=== PATIENT | female | born 1975 | race Caucasian/White ===

== ENCOUNTER → 2017-03-28 12:17 | Outpatient (CLI) | payer MEDICAID, SELFPAY | PROVIDERS: PCP Family Medicine; Visit Provider Family Medicine | DX: G47.10 Hypersomnia, unspecified (principal); R51 Headache; R06.83 Snoring; I10 Essential (primary) hypertension; E66.9 Obesity, unspecified | CPT/HCPCS: 95806 ==

== ENCOUNTER → 2019-08-22 10:45 | Outpatient (CLI) | payer OTHER, SELFPAY ==
--- NOTE | 2019-08-22 10:55 | XR_ITS ---
PROCEDURE: XR CERVICAL SPINE 4V CLINICAL INDICATION: PAIN IN SHOULDER AND ARM NUMBNESS COMPARISON: No exams were available for comparison FINDINGS: There is mild degenerative disc disease at C4-C5 and C5-C6. There is mild foraminal narrowing on the right at C5-C6 from uncovertebral hypertrophy. No fracture or dislocation. No lytic or blastic change. IMPRESSION: Mild cervical spondylosis as detailed above Dictated by: Orlando Robles MD 08/22/2019 14:15 Electronically signed by Orlando Robles MD in [place] 08/22/2019 14:15
== END ==
LOC: RAD 10:49
PROVIDERS: PCP Family Medicine; Visit Provider Family Medicine
DX: M54.2 Cervicalgia (principal)
CPT/HCPCS: 72050

== ENCOUNTER → 2019-11-01 07:55 | Outpatient (CLI) | payer OTHER, SELFPAY ==
--- NOTE | 2019-11-01 07:58 | US_ITS ---
PROCEDURE: US ABDOMEN LIMITED CLINICAL INDICATION: NAUSEA AND VOMITING COMPARISON: No exams were available for comparison FINDINGS: PANCREAS: Unremarkable. No obvious mass or abnormal fluid collection. No ductal dilatation LIVER: No focal liver lesions demonstrated. Homogeneous echogenicity. No intrahepatic biliary ductal dilatation evident. There is appropriate direction of blood flow within a non dilated portal vein RIGHT KIDNEY: Unremarkable. Normal size and echogenicity. No hydronephrosis GALLBLADDER: No gallstones, gallbladder wall thickening, pericholecystic fluid, or biliary dilatation. IMPRESSION: Unremarkable limited abdominal ultrasound as detailed above disc Dictated by: Orlando Robles MD 11/01/2019 11:42 Orlando Robles MD in [place] 11/01/2019 11:42
== END ==
PROVIDERS: PCP Family Medicine; Visit Provider Nurse Practitioner
DX: R11.2 Nausea with vomiting, unspecified (principal)
CPT/HCPCS: 76705

== ENCOUNTER 2019-11-14 08:55 | Outpatient (RCR) | payer OTHER, MEDICAID, SELFPAY ==
--- NOTE | 2019-11-14 09:59 | HMH.PTOPEV ---
PT Outpatient Evaluation Rehab PT Outpatient Evaluation Start: 11/14/19 09:44 Freq: Status: Active Protocol: Document 11/14/19 09:44 CHIDI (Rec: 11/14/19 09:58 CHIDI [id number]) Electronically Signed By Csaper Graham, PT 11/14/19 09:44 Outpatient Therapy Subjective History Subjective History Patient is a 44 year old female presenting to outpatient PT with reports of acute cervical spine pain with LUE radicular symptoms starting approx 1 month ago. Patient reports majority of radicular symptoms to R C6/7 dermatomes. Most recent imaging indicates mild cervical spondylosis. Symptoms of insidious onset. No other comorbidities to report. Chief Complaint Pain,Stiff,Paresthesia Symptom Type Sharp,Numbness,Tingling, Shooting Symptoms Relieved By Rest/Positioning,OTC Meds Symptoms Aggravated By Physical Activity Prior Functional Limitations None Current Functional Limitations Reaching,Lifting,Housework Symptom Description Constant but Variable Level of pain today (0-10) 5 Pain scale - at its best (0-10) 3 Pain scale - at its worst (0-10) 10 Cervical Eval Palpation Cervical Muscles L Cervical Paraspinal,L CT Junction,L Upper Trapezius Cervical/Thoracic Palpation Findings Tenderness Posture Head/C-Spine Posture Sitting Position C-Spine Flattened Head/C-Spine Posture Standing Position C-Spine Flattened Flexibility Deficits Upper Trapezius Muscle Length (L) Moderate Tightness Levaetor Scapulae Muscle Length (L) Moderate Tightness Scalene Group Muscle Length (L) Moderate Tightness Pectoralis Minor Muscle Length (L) Moderate Tightness Passive Joint Mobility Cervical PIVM Dec: R C2/3 L C2/3 R C3/4 L C3/4 R C4/5 L C4/5 R C5/6 L C5/6 R C6/7 L C6/7 R C7/T1 L C7/T1 WNL: R OA L OA R AA L AA AROM Cervical
== END 2019-11-14 09:24 | disposition home or self-care (01) ==
LOC: PT 08:55
PROVIDERS: PCP Family Medicine; Visit Provider Family Medicine
DX: M54.12 Radiculopathy, cervical region (principal)
CPT/HCPCS: 97163

== ENCOUNTER 2020-04-06 09:02 | Emergency (ER) | payer OTHER, SELFPAY ==
[2020-04-06 09:10] VITALS: BP 140/86; PULSE 83; RESP 19; TEMP 36.8; O2SAT 98; BMI 32.8
--- NOTE | 2020-04-06 09:19 | XR_ITS ---
PROCEDURE: XR CHEST 2V CLINICAL HISTORY: cough COMPARISON: CR CXR CHEST(2 VIEWS-NOT PORTABLE) from 12/11/2016 CR CXR CHEST(2 VIEWS-NOT PORTABLE) from 12/16/2016 FINDINGS: The cardiomediastinal silhouette and pulmonary vascularity are within normal limits. The lungs are clear without infiltrates, suspicious nodules, or pleural effusions. There is a calcified right paratracheal node and there partially calcified right hilar nodes and there is a tiny calcified granuloma right midlung field. No acute bony abnormalities. IMPRESSION: No acute findings. Dictated by: Dr. Bertin Piña MD 04/06/2020 10:04 Dr. Bertin Piña MD in [place] 04/06/2020 10:04
--- NOTE | 2020-04-06 09:44 | HMH.EDUTC ---
[facility] [facility] [place] Clinical Impression: Bronchitis Sinusitis Qualifiers: Sinusitis location: unspecified location Chronicity: unspecified Qualified Code(s): J32.9 - Chronic sinusitis, unspecified Disposition: Home, Self-Care Condition on Discharge: Good Instructions: Sinusitis, Acute Bronchitis, DI for Sinusitis, DI for Pleurisy, Albuterol, Methylprednisolone, Azithromycin Additional Instructions: ? Start antibiotic today. Be sure to complete entire prescription even if feeling better ? Monitor temp. Tylenol every 4 hours as needed and / or ibuprofen every 6 hours as needed ( As long as your primary care physician has told you that it ok to take both. For fever/aches/pains ER if no less than 101 despite Tylenol or Motrin ? Humidifier/vaporizer or hot steamy shower ? Inhaler every 4-6 hours as needed like we discussed. If unsure how to use it, ask pharmacist to demonstrate how. Should help open airways and improve cough, wheezing, and shortness of breath ? Mucinex during the day for your cough and cough suppressant only at night. Be sure to drink lots of water. Insurance may not cover a prescriptions for mucinex. Might be cheaper to get 400mg tablets and take 2 tablet in the morning, mid-day and evening with lots of water. *Start steroid today. Helps with inflammation therefore, cough and wheezing. Follow directions on the package. Reviewed side effects. Patient reports taking them before. Follow up IMMEDIATELY for new or worsening of symptoms OR no noticeable improvement over the next 48-72 hours. 911 immediately for any life threatening symptoms such as chest pain or difficulty breathing Prescriptions: Albuterol Sulfate [Proventil-HFA 90mcg/puff Inh] 1 - 2 puffs IH Q4HP PRN #1 inh PRN Reason: Shortness Of Breath Transmission Status: Received by [facility] methylPREDNISolone [Medrol 4mg tab] 4 mg PO DIRECTED #21 tab Transmission Status: Received by [facility] guaiFENesin [Mucinex 600mg tablet] 600 mg PO BID PRN #10 tab.er.12h PRN Reason: Congestion Transmission Status: Received by [facility] Azithromycin [Z-Prabhu 250mg Tab] 250 mg PO DIRECTED #6 tab Transmission Status: Received by [facility] Referrals: Amado Lyle MD [Primary Care Provider] - As needed Time of Disposition: 10:01 Medical Decision Making - Nathanael Inquiry Pt receiving controlled substance: No Nathanael was queried for this patient: No Vital Signs: 04/06/20 09:10 04/06/20 10:07 Temperature 98.2 F 98.2 F Temperature Source Oral Pulse Rate 83 Pulse Rate [Right Brachial] 83 Respiratory Rate 19 19 Blood Pressure 140/86 Blood Pressure [Right Arm] 140/86 Blood Pressure Mean [Right Arm] 104 Blood Pressure Source [Right Arm] Automatic Cuff Blood Pressure Position [Right Arm] Sitting 02 Sat by Pulse Oximetry 98 Oxygen Delivery Method Room Air - Radiology Data #1 Image(s): Chest Image Reviewed: Yes I reviewed the patient's radiology image w/the ED provider Preliminary Findings: Normal/NAD No acute finding Medical Decision Narrative: Discussed with patient that chest xray was clear and all the risks associated with COVID 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 Discussed that we could send her to the ED for more extensive work up and testing and patient declined at this time Patient advised that if she had sudden shortness of breath, stabbing chest pain etc she needed to go straight to the nearest emergency room and she verbalized understanding Patient reports that she has taken azithromycin and Medrol dose pack before without complications or reactions [facility] [place] [facility] [place] - General Stated complaint: tightness in chest, cough, pain in shoulder blades Time Seen by Provider: 04/06/20 09:44 Mode of Arrival: Ambulatory Source of Information: Patient Limitations: No Limitations Description of Symptoms (Recalled from Triage Doc. by RN): PATEINT C/O CHEST TIGHTNESS, PAIN IN MID/UPPER BACK, AND OCCASIO
[2020-04-06 10:07] VITALS: BP 140/86; PULSE 83; RESP 19; TEMP 36.8; O2SAT 98
== END 2020-04-06 10:09 | disposition home or self-care (01) ==
PROVIDERS: Emergency Provider Nurse Practitioner; PCP Family Medicine
DX: J20.9 Acute bronchitis, unspecified (principal); J32.9 Chronic sinusitis, unspecified; F17.210 Nicotine dependence, cigarettes, uncomplicated; Z88.0 Allergy status to penicillin
CPT/HCPCS: 71046; 99202; G0463

== ENCOUNTER 2021-03-25 09:45 | Emergency (ER) | payer OTHER, SELFPAY ==
[2021-03-25 10:05] VITALS: BP 131/76; PULSE 85; RESP 18; TEMP 36.8; O2SAT 97; BMI 33.5
--- NOTE | 2021-03-25 10:41 | HMH.EDUTC ---
[facility] [place] Clinical Impression: Viral syndrome Disposition: Home, Self-Care Condition on Discharge: Good Instructions: DI for Viral Syndrome Additional Instructions: *Monitor Temp, Over the counter Motrin or Tylenol as directed/as needed Tylenol every 4 hours and Motrin every 6 hours (as long as your family doctor has told you that you can take it) for fever or pain. and straight to ER if unable to lower temp less than 101.0 after medication given *Warm salt water gargles may help to soothe the throat *Throat Lozenges *Warm fluids like tea with honey may help to soothe the throat *Sleep elevated *Humidifier/Vaporizer Follow up IMMEDIATELY for new or worsening symptoms or no Noticeable improvement over the next 48-72 hours. 911 for difficulty breathing or swallowing You were tested for today for COVID19 your test result should be back in the next 24-48 hours, you may check your results on the [facility] Portal if you have trouble logging on or checking your results you may call support If you are positive someone from the hospital will be calling you Make sure to take your Vitamins Vit. C Vit D and Zinc if you can take them Referrals: Amado Lyle MD [Primary Care Provider] - As needed Forms: Work/School Release Time of Disposition: 11:10 Medical Decision Making - Nathanael Inquiry Pt receiving controlled substance: No Nathanael was queried for this patient: No Vital Signs: 03/25/21 10:05 03/25/21 10:55 Temperature 98.2 F 98.2 F Temperature Source Oral Pulse Rate 85 Pulse Rate [Left] 85 Respiratory Rate 18 18 Blood Pressure 131/76 Blood Pressure [Right Arm] 131/76 Blood Pressure Mean [Right Arm] 94 02 Sat by Pulse Oximetry 97 Orders (Tests/Meds): ORDERS Category Date Time Status Covid-19 Nasal PCR ([facility]) Routine Lab 03/25/21 10:06 Received [facility] [place] HPI - General Stated complaint: cough, congestion, CAMPOS, light headed Time Seen by Provider: 03/25/21 10:41 Mode of Arrival: Ambulatory Source of Information: Patient Limitations: No Limitations Description of Symptoms (Recalled from Triage Doc. by RN): pt c/o cough, congestion, CAMPOS, dizziness, and sneezing x3 days. HEENT Symptoms (Recalled from RN notes): Yes Resp Symptoms (Recalled from RN notes): Yes Skin Symptoms (Recalled from RN notes): No MS Symptoms (Recalled from RN notes): No Functional Status (Recalled from RN notes): wnl - History of Present Illness Provider Complaint: Patient states that she was recently exposed to COVID States that for the last three days she has been having sore throat, cough, nasal congestion, sneezing and headache States that the last time she had COVID she had a headache similar to what she has now - Related Data Home Medications Medication Instructions Recorded Confirmed Escitalopram Oxalate [Lexapro] 20 mg PO DAILY 04/06/20 04/06/20 Previous Rx's Medication Instructions Recorded Albuterol Sulfate [Proventil-HFA 1 - 2 puffs IH Q4HP PRN #1 inh 04/06/20 90mcg/puff Inh] Azithromycin [Z-Prabhu 250mg Tab] 250 mg PO DIRECTED #6 tab 04/06/20 guaiFENesin [Mucinex 600mg tablet] 600 mg PO BID PRN #10 tab.er.12h 04/06/20 methylPREDNISolone [Medrol 4mg 4 mg PO DIRECTED #21 tab 04/06/20 tab] Allergies Allergy/AdvReac Type Severity Reaction Status Date / Time Penicillins [PENICILLINS] Allergy Mild Verified 11/15/18 18:58 - Worker's Comp Is this a Worker's Comp case?: No [facility] History - Hepatitis A Screen Drug use history?: No High risk sexual behaviors?: No History of sexually transmitted infection?: No Currently employed?: No Childcare worker?: No Do you have indoor plumbing?: Yes Do you have electricity?: Yes Attestation statement:: This patient has been screened for Hepatitis A risk factors. I have reviewed the patient's past medical history: Yes - Social History Smoking Status: Current every day smoker Tobacco Type: cigarettes # Packs/Day (cigarettes)
[2021-03-25 10:55] VITALS: BP 131/76; PULSE 85; RESP 18; TEMP 36.8
== END 2021-03-25 11:21 | disposition home or self-care (01) ==
PROVIDERS: Emergency Provider Nurse Practitioner; PCP Family Medicine
DX: U07.1 COVID-19 (principal); B34.9 Viral infection, unspecified; F17.210 Nicotine dependence, cigarettes, uncomplicated
CPT/HCPCS: 99203; C9803; G0463; U0003; U0005

== ENCOUNTER → 2021-08-24 09:46 | Outpatient (CLI) | payer OTHER, SELFPAY ==
[2021-08-24 09:58] LABS: Basophils # 0.1 K/mm3 (0-0.2); Eosinophils # 0.3 K/mm3 (0.0-0.4); Eosinophils % 3.4 % (0.1-12.0); Hematocrit 24.6 % (37.0-47.0); Hemoglobin 7.8 g/dL (12.2-16.2); Lymphocytes # 2.7 K/mm3 (0.7-4.5); Lymphocytes % 29.5 % (10-50); Mean Corpuscular HGB Conc 31.6 g/dL (31.8-35.4); Mean Corpuscular Hemoglobin 31.5 pg (27.0-31.2); Mean Corpuscular Volume 99.7 fl (81-99); Monocytes # 0.5 K/mm3 (0.1-1.0); Neutrophils # 5.6 K/mm3 (1.8-7.8); Neutrophils % 61.1 % (37.0-80.0); Platelet Count 443 K/mm3 (142-424); Red Blood Count 2.47 M/mm3 (4.20-5.40); Red Cell Distribution Width 13.5 % (11.5-17.5); White Blood Count 9.2 K/mm3 (4.8-10.8)
[2021-08-24 11:10] LABS: Thyroid Stimulating Hormone 5.46 uIU/mL (0.465-4.68)
[2021-08-24 16:22] LABS: Free T4 (Free Thyroxine) 0.73 ng/dl (0.78-2.19)
== END ==
PROVIDERS: Visit Provider Obstetrics & Gynecology
DX: N92.6 Irregular menstruation, unspecified (principal); R79.89 Other specified abnormal findings of blood chemistry
CPT/HCPCS: 36415; 84439; 84443; 85025

== ENCOUNTER → 2021-08-26 14:56 | Outpatient (CLI) | payer OTHER, SELFPAY ==
--- NOTE | 2021-08-26 14:57 | US_ITS ---
FINAL REPORT CLINICAL HISTORY: Abnormal uterine bleeding; prolonged bleeding X 2 months; endometrium thickened; cyst on both ovaries FINDINGS: Transvaginal sonographic images of the pelvis were obtained. The uterus measures 8.7 x 4.7 x 4.3 cm. The endometrium measures up to 2 cm, which is thickened but may be physiologic. No uterine mass is identified. The right ovary measures 3.7 cm cm in length and left ovary measures 5 cm in length. Normal blood flow seen to the ovaries. There are anechoic structures in both ovaries measuring up to 3.5 x 2.8 on the right and up to 2.8 cm in diameter on the left. These may represent cysts or follicles. There is no evidence of free fluid. IMPRESSION: Thickened endometrium. Cysts or follicles on both ovaries. A repeat exam in 6 weeks or 10 weeks could better assess both the endometrium and ovaries. Reviewed, Interpreted and Dictated by Reilly Velasquez MD Transcribed by Yris Del Cid Authenticated and . [facility]
== END ==
LOC: RAD 14:57
PROVIDERS: PCP Family Medicine; Visit Provider Obstetrics & Gynecology
DX: N92.6 Irregular menstruation, unspecified (principal); N93.9 Abnormal uterine and vaginal bleeding, unspecified
CPT/HCPCS: 76830

== ENCOUNTER 2021-08-27 00:07 | Observation (INO) | payer OTHER, SELFPAY ==
[2021-08-27] VITALS (40 sets, daily range): BP systolic 103–157; BP diastolic 57–99; PULSE 68–107; RESP 14–20; TEMP 36.3–37; O2SAT 94–100; BMI 33.6; BMI 34.6
--- NOTE | 2021-08-27 00:14 | ECG_ITS ---
APPROVED REPORT Exam: Resting ECG HR:107 bpm ECG Measurements Heart Rate 107 AXES OR 141 P 67 QRSd 85 QRS 71 QT 316 T 73 QTc 379 Conclusion SINUS TACHYCARDIA ABNORMAL RHYTHM ECG UNCONFIRMED REPORT Electronically signed by : Amado Gonsales MD 08/27/2021 09:19:18
--- NOTE | 2021-08-27 00:17 | XR_ITS ---
PROCEDURE INFORMATION: Exam: XR Chest Exam date and time: 08/27/2021 12:36 AM Age: 45 years old Clinical indication: Pain; Shortness of breath; Chest pressure; Additional info: SOA TECHNIQUE: Imaging protocol: Radiologic exam of the chest. Views: 2 views. COMPARISON: CR XR CHEST 2V 04/06/2020 9:22 AM FINDINGS: Lungs: Stigmata of old granulomatous disease. Pleural spaces: Unremarkable. No pleural effusion. No pneumothorax. Heart/Mediastinum: Unremarkable. No cardiomegaly. Bones/joints: Unremarkable. IMPRESSION: No acute findings.
[2021-08-27 00:23] LABS: Microscopic, Urine URINE MICROSCOPIC (MICROSCOPIC)
[2021-08-27 00:31] LABS: Coronavirus 19, PCR Not Detected (NotDetected); Influenza A, PCR Not Detected (NotDetected); Influenza B, PCR Not Detected (NotDetected)
[2021-08-27 00:34] LABS: Basophils # 0.1 K/mm3 (0-0.2); Basophils % 0.6 % (0.1-2.0); Eosinophils # 0.3 K/mm3 (0.0-0.4); Eosinophils % 1.7 % (0.1-12.0); Hematocrit 22.4 % (37.0-47.0); Lymphocytes # 3.1 K/mm3 (0.7-4.5); Lymphocytes % 18.9 % (10-50); Mean Corpuscular Hemoglobin 31.8 pg (27.0-31.2); Mean Corpuscular Volume 102.5 fl (81-99); Monocytes # 0.7 K/mm3 (0.1-1.0); Monocytes % 4.4 % (1.7-9.3); Neutrophils % 74.4 % (37.0-80.0); Platelet Count 594 K/mm3 (142-424); Red Blood Count 2.19 M/mm3 (4.20-5.40); Red Cell Distribution Width 13.5 % (11.5-17.5); White Blood Count 16.1 K/mm3 (4.8-10.8)
[2021-08-27 00:37] LABS: Alanine Aminotransferase 26 U/L (12-78); Albumin Level 3.6 g/dl (3.5-5.0); Albumin/Globulin Ratio 1.4 (1.1-1.8); Alkaline Phosphatase 68 U/L (38-126); Anion Gap 10.7 mEq/L (5-15); Aspartate Amino Transferase 32 U/L (14-36); Blood Urea Nitrogen 7 mg/dl (7-17); Calcium 8.6 mg/dl (8.4-10.2); Carbon Dioxide 23 mmol/L (22.0-30.0); Chloride 107 mmol/L (98-107); Creatinine Clearance Estimated 137 mL/min (50-200); Estimated Glomerular Filt Rate 78 ml/min (>60); GFR (African American) 94 ML/MIN (>60); Globulin 2.6 g/dL (1.3-3.2); Glucose 113 mg/dl (74-100); Potassium 3.7 mmoL/L (3.5-5.1); Sodium 137 mmol/L (136-145); Total Protein,Serum 6.2 g/dl (6.3-8.2)
[2021-08-27 00:42] LABS: Bilirubin,Total < 0.1 mg/dl (0.2-1.3); C-Reactive Protein 0.7 mg/L (0-4)
--- NOTE | 2021-08-27 00:43 | PC.NURSE ---
Pt gone to RAD for XRAY
[2021-08-27 00:45] LABS: MANUAL DIFFERENTIAL MANUAL DIFFERENTIAL (MANUAL DIFF)
--- NOTE | 2021-08-27 00:46 | PC.NURSE ---
Pt back from RAD
[2021-08-27 00:52] LABS: Appearance,Urine SL CLOUDY (Clear); Bilirubin,Urine Negative (Negative); Blood, Urine 3+ (Negative); Color,Urine YELLOW (Yellow); Glucose,Urine (UA) Negative (Negative); Ketones,Urine Negative (Negative); Leukocyte Esterase,Urine 1+ (Negative); Nitrate,Urine Negative (Negative); Protein,Urine Negative (Negative); Urobilinogen,Urine 0.2 EU/dl (0.2)
[2021-08-27 00:56] LABS: Procalcitonin 0.032 ng/mL (0.0-2.0)
[2021-08-27 01:02] LABS: Troponin I < 0.01 ng/ml (0.00-0.034)
[2021-08-27 01:29] LABS: Erythrocyte Sedimentation Rate 111 mm/hr (0-20)
[2021-08-27 01:38] LABS: Bacteria,Urine 1+ /lpf; Squamous Epithelial Cell,Urine 20-50 #/hpf (0-5)
--- NOTE | 2021-08-27 01:39 | PC.NURSE ---
Warm blanket given for comfort. Updated pt on POC. No complaints voiced.
--- NOTE | 2021-08-27 01:50 | HMH.EDSOB ---
ED Disposition Clinical Impression: Abnormal uterine bleeding, Tobacco user, Obesity (BMI 30-39.9) Chest pain Qualifiers: Chest pain type: precordial pain Qualified Code(s): R07.2 - Precordial pain Disposition: Admitted as Observation Condition on Discharge: Fair - Critical Care Critical Care Time: No Attestation: On 08/27/21, the high probability of a clinically significant, sudden or life threatening deterioration of the following system(s) required my full and direct attention, intervention and personal management. The time I documented below is in addition to time spent performing reported procedures but includes the following listed in this critical care notation. Medical Decision Making - Medical Records Medical records reviewed: Yes: I reviewed the patient's medical records. - Nathanael Inquiry Pt receiving controlled substance: No Vital Signs: 08/27/21 00:08 08/27/21 00:30 08/27/21 01:00 Temperature 98.5 F Temperature Source Oral Pulse Rate 101 H 90 Pulse Rate [Orthostatic Lying Right] 101 H Pulse Rate [Orthostatic Sitting Right] 105 H Pulse Rate [Orthostatic Standing Right] 105 H Pulse Rate [Right] 107 H Respiratory Rate 18 Blood Pressure 127/73 113/66 Blood Pressure [Orthostatic Lying Right Arm] 115/65 Blood Pressure [Orthostatic Sitting Right Arm] 118/65 Blood Pressure [Orthostatic Standing Right Arm] 118/66 Blood Pressure [Right Arm] 145/73 H Blood Pressure Mean 83 Blood Pressure Mean [Right Arm] 97 02 Sat by Pulse Oximetry 100 100 100 Oxygen Delivery Method Room Air 08/27/21 01:30 Temperature Temperature Source Pulse Rate 91 H Pulse Rate [Orthostatic Lying Right] Pulse Rate [Orthostatic Sitting Right] Pulse Rate [Orthostatic Standing Right] Pulse Rate [Right] Respiratory Rate Blood Pressure 127/72 Blood Pressure [Orthostatic Lying Right Arm] Blood Pressure [Orthostatic Sitting Right Arm] Blood Pressure [Orthostatic Standing Right Arm] Blood Pressure [Right Arm] Blood Pressure Mean Blood Pressure Mean [Right Arm] 02 Sat by Pulse Oximetry 100 Oxygen Delivery Method Room Air - Lab Data Lab results reviewed: Yes: I reviewed the patient's lab results. Lab Results 08/27/21 00:10: Urine Color Yellow, Urine Appearance Sl cloudy, Urine pH 6.0, Ur Specific [place] 1.020, Urine Protein Negative, Urine Glucose (UA) Negative, Urine Ketones Negative, Urine Blood 3+, Urine Nitrate Negative, Urine Bilirubin Negative, Urine Urobilinogen 0.2, Ur Leukocyte Esterase 1+ A, Urine RBC 10-20, Urine WBC 10-20, Ur Squamous Epith Cells 20-50, Urine Bacteria 1+ 08/27/21 00:20: WBC 16.1 H D, RBC 2.19 L, Hgb 7.0 L, Hct 22.4 L, MCV 102.5 H, MCH 31.8 H, MCHC 31.0 L, RDW 13.5, Plt Count 594 H D, MPV 9.0, Neut % (Auto) 74.4, Lymph % (Auto) 18.9, Tyrrell % (Auto) 4.4, Eos % (Auto) 1.7, Baso % (Auto) 0.6, Neut # (Auto) 12.0 H, Lymph # (Auto) 3.1, Tyrrell # (Auto) 0.7, Eos # (Auto) 0.3, Baso # (Auto) 0.1, Total Counted 100, Neutrophils % (Manual) 88 H, Lymphocytes % (Manual) 10, Monocytes % (Manual) 2, Platelet Estimate Normal, RBC Morphology Not Reportable, Hypochromasia 1+, Anisocytosis 1+, ESR 111 H 08/27/21 00:20: Sodium 137, Potassium 3.7, Chloride 107, Carbon Dioxide 23, Anion Gap 10.7, BUN 7, Creatinine 0.80, Estimated Creat Clear 137, Estimated GFR 78, Est GFR ( Amer) 94, Glucose 113 H, Calcium 8.6, Total Bilirubin < 0.1 L, AST 32, ALT 26, Alkaline Phosphatase 68, Troponin I < 0.01, C-Reactive Protein 0.7, Total Protein 6.2 L, Albumin 3.6, Globulin 2.6, Albumin/Globulin Ratio 1.4, Procalcitonin 0.032 08/27/21 00:20: SARS-CoV-2 (PCR) Not detected, Influenza A Untype (PCR) Not detected, Influenza Type B (PCR) Not detected Result diagrams: 08/27/21 00:20 08/27/21 00:20 Orders (Tests/Meds): ED MEDICATIONS Generic Name Dose Route Start Last Admin Trade Name Freq PRN Reason Stop Dose Admin Sodium Chloride 1,000 mls @ 999 mls/hr 08/27/21 00:30 08/27/21 00:25 Sod Chlo
--- NOTE | 2021-08-27 02:02 | PC.NURSE ---
speaking to Dr. Hanna
[2021-08-27 02:03] LABS: Anisocytosis 1+; Hypochromasia 1+; Lymphocytes % 10 % (10-50); Monocytes % 2 % (2-9); Neutrophils % 88 % (42-76); Platelet Estimate Normal; Total Cells Counted 100
--- NOTE | 2021-08-27 02:15 | PC.NURSE ---
Dr. Ronak workman
--- NOTE | 2021-08-27 02:17 | PC.NURSE ---
speaking with Dr. Simons
[2021-08-27 02:36] LABS: NT Pro Brain Natriuretic Pep. 190 pg/mL (0-125)
--- NOTE | 2021-08-27 03:11 | PC.NURSE ---
patient up too floor via wheelchair @ this time.
--- NOTE | 2021-08-27 03:45 | PC.NURSE ---
Blood consent obtained and placed on patient chart. Risks/benefits explained to patient, and all questions answered/explained.
[2021-08-27 03:50] LABS: Troponin I < 0.01 ng/ml (0.00-0.034)
--- NOTE | 2021-08-27 05:14 | PC.NURSE ---
Pt currently receiving first unit of PRBC's. Tolerating well. No s/s of transfusion reaction. Pt denies any cp, or soa. LS CTA. NSR on telemetry. All pulses palpable. Denies any vaginal bleeding at this time. No acute changes or distress noted since admission, will continue to monitor for any further changes.
[2021-08-27 06:17] LABS: Chloride 113 mmol/L (98-107); Potassium 3.6 mmoL/L (3.5-5.1); Sodium 136 mmol/L (136-145)
[2021-08-27 06:19] LABS: Blood Urea Nitrogen 5 mg/dl (7-17); Creatinine Clearance Estimated 187 mL/min (50-200); Estimated Glomerular Filt Rate 108 ml/min (>60); GFR (African American) 131 ML/MIN (>60)
[2021-08-27 06:20] LABS: Anion Gap 6.6 mEq/L (5-15); Carbon Dioxide 20 mmol/L (22.0-30.0); HDL Cholesterol 24 mg/dl (40-60)
[2021-08-27 06:23] LABS: Basophils # 0.1 K/mm3 (0-0.2); Basophils % 0.8 % (0.1-2.0); Eosinophils # 0.2 K/mm3 (0.0-0.4); Eosinophils % 1.8 % (0.1-12.0); Lymphocytes # 2.6 K/mm3 (0.7-4.5); Lymphocytes % 22.6 % (10-50); Mean Corpuscular HGB Conc 29.6 g/dL (31.8-35.4); Mean Corpuscular Hemoglobin 31.6 pg (27.0-31.2); Mean Corpuscular Volume 106.7 fl (81-99); Mean Platelet Volume 8.9 fl (7.4-10.4); Monocytes # 0.5 K/mm3 (0.1-1.0); Monocytes % 4.3 % (1.7-9.3); Neutrophils % 70.6 % (37.0-80.0); Platelet Count 452 K/mm3 (142-424); Red Blood Count 1.96 M/mm3 (4.20-5.40); Red Cell Distribution Width 13.7 % (11.5-17.5); White Blood Count 11.4 K/mm3 (4.8-10.8)
[2021-08-27 06:26] LABS: Chol/HDL Ratio 7.2 (1-3.5); Cholesterol 172 mg/dl (140-200); Triglycerides 195 mg/dl (30-150); VLDL Cholesterol 39 mg/dL (0-40)
[2021-08-27 06:27] LABS: Hemoglobin 6.2 g/dL (12.2-16.2)
[2021-08-27 06:28] LABS: Hematocrit 20.9 % (37.0-47.0)
--- NOTE | 2021-08-27 06:29 | PC.NURSE ---
aware of critical hgb - 1st unit of PRBC's still transfusing at this time. Rate of 150ml/hr
[2021-08-27 06:31] LABS: Direct LDL Cholesterol 122.06 mg/dL (100-129)
[2021-08-27 06:53] LABS: Calcium 7.8 mg/dl (8.4-10.2); Glucose 94 mg/dl (74-100)
--- NOTE | 2021-08-27 06:55 | PC.NURSE ---
cv lab at bedside for echo doppler
[2021-08-27 07:08] LABS: Troponin I < 0.01 ng/ml (0.00-0.034)
--- NOTE | 2021-08-27 07:21 | P.CONPHA_ITS ---
[facility] VTE Monitoring - Patient Demographics Admission date: 08/27/21 Report Date: 08/27/21 Time: 07:21 Allergies/Adverse Reactions: Patient Allergies Penicillins [PENICILLINS] Allergy (Mild, Verified 08/27/21 03:00) Height: 1.7 m Weight: 100.062 kg Patient Problems: Current Active Problems Chest pain (Acute) Obesity (BMI 30-39.9) (Acute) Abnormal uterine bleeding (Acute) Tobacco user (Acute) - VTE Risk Labs: VTE Related Lab Results Hgb 6.2 g/dL (12.2-16.2) L* 08/27/21 05:47 Hct 20.9 % (37.0-47.0) L* 08/27/21 05:47 Plt Count 452 K/mm3 (142-424) H 08/27/21 05:47 BUN 5 mg/dl (7-17) L D 08/27/21 05:47 Creatinine 0.60 mg/dl (0.52-1.04) D 08/27/21 05:47 Estimated Creat Clear 187 mL/min (50-200) 08/27/21 05:47 VTE Score: 3 VTE Risk Level: Low Risk - Prophylaxis VTE Prophylaxis Ordered?: Yes Types of VTE Prophylaxis: TEDS Knee High Location of Applied Device: Bilateral Lower Extremeties
--- NOTE | 2021-08-27 07:22 | HMH.PHAINT ---
MEDICATION RECONCILIATION COMPLETED ON PATIENT USING EXTERNAL FILL HISTORY FROM PHARMACY AND LIST FROM CLAIMS SUPPORT SPECIALIST OFFICE. -DIANA ANDERSOND
--- NOTE | 2021-08-27 08:00 | CA_ITS ---
APPROVED REPORT EXAM: Comprehensive 2D, Doppler, and color-flow Echocardiogram Auricular Therapist: Little Angulo, GLEN, RVS Ht: 5 ft 7 in Wt: 215lbs BSA: 2.09 BP: 127/72 mmHg Indications: Anemia Hgb7.0l, dysfuntional uterine bleeding, CP,smoker,Obesity 2D Dimensions LVOT 1.98 cm (M/F) 1.5-2.5 LA Volume 50.80 mL LA Volume Index 24.30 mL/m2 (M/F) 16-34 M-Mode Dimensions RVDd 2.07 cm (0.9-2.6) LA Diam 3.77 cm (1.9-4.0) LVDd 5.54 cm (3.5-5.7) Ao Diam 2.83 cm (2.0-3.7) LVDs 3.89 cm (3.5-5.7) IVSd 0.82 cm (0.6-1.1) PWd 0.82 cm (0.6-1.1) EF (Teich) 56.30% EPSs 0.36 cm FS 29.80% EDV (Teich) 149.90 mL TAPSE 2.51 (<1.7) ESV (Teich) 65.50 mL LV Diastology E Decel Time 173.00 (160-240 msec) E/A Ratio 1.21 MED E' 12.10 (< 7 cm/sec) MED A' 9.20 cm/s E'/MED E' Ratio 9.27 (>14) LAT E' 11.80 (<10 cm/sec) LAT A' 6.80 cm/s E/LAT E' Ratio 9.51 (>14) Aortic Valve LVOT Max 109.00 (70-110 cm/s) LVOT VTI 22.53 cm AoV Peak Piter. 138.00 (50-130 cm/s) AO Peak GR. 7.60 mmHg AO Mean GR. 3.80 (<5 mmHg) AO VTI 27.16 (18-25 cm) MARTINE (VTI) 2.55 (2.5-4.5 cm2) Mitral Valve MV A Velocity 92.00 (40-130 cm/s) E/A Ratio 1.21 MV Decel. Time 173.00 (160-240 ms) MV Mean Gr. 1.70 (<2mmHg) MV PHT 47.00 ms Pulmonary Valve PV Peak Velocity 96.00 (50-150 cm/s) Tricuspid Valve TR P. Velocity 189.00 cm/s Left Ventricle Left atrium normal size, left ventricle is normal size there is no concentric left ventricular hypertrophy, estimated ejection fraction 55% with no regional motion abnormality, diastolic parameters are within normal range. Right Ventricle Right atrium and right ventricle are normal size and contractility. Aortic Valve Aortic valve is grossly normal, there is no aortic stenosis or aortic insufficiency. Mitral Valve Mitral valve is grossly normal, there is trace mitral regurgitation. Tricuspid Valve Tricuspid grossly normal, there is trace tricuspid regurgitation, tricuspid regurgitation jet velocity is inadequate for calculation of the right ventricular systolic pressure. Pulmonic Valve Pulmonic valve is poorly visualized. Great Vessels Aortic root is normal size. Inferior vena cava is normal size with normal inspiratory collapse. Pericardium No significant pericardial effusion noted. Conclusion 1. Normal left ventricular size, preserved left ventricular systolic function, estimated ejection fraction 55% with no regional wall motion abnormality, diastolic parameters are within normal range. 2. Trace mitral and tricuspid regurgitation. 3. No significant pericardial effusion noted. 4. Inferior vena cava normal size with normal inspiratory collapse. Electronically signed by : Pravin Austin MD 08/28/2021 13:44:23
--- NOTE | 2021-08-27 08:40 | PC.NURSE ---
started 2nd unit of blood on patient at 0835. patient has no questions or concerns at this time. currently resting in bed.
--- NOTE | 2021-08-27 08:48 | HMH.CNCARD ---
History of Present Illness Consult date: 08/27/21 Consult reason: chest pain Chief complaint: Anemia, chest pain Additional Medical History:: 1. Tobacco use 2. Family history of early coronary artery disease in both parents in their 50s (both smokers) 3. Abnormal, heavy uterine bleeding for 3 months A. Hospitalization with hemoglobin of 6.2 with heavy uterine bleeding, 08/26/2021 4. History of hyperlipidemia 5. Chest pain, hospitalized 08/26/2021, normal troponins with normal EF on echocardiogram History of present illness: 45-year-old white female with history of recent heavy menstrual bleeding was admitted yesterday for 1 week history of heavy bleeding with onset of chest pain yesterday along with weakness and fatigue. Patient was admitted with a hemoglobin of 6.2 for transfusion. Patient has no further chest pain overnight. Troponins returned normal x3 overnight. Preliminary echocardiogram echocardiogram shows preserved ejection fraction. Nondiabetic Nonhypertensive No prior cardiac history She does smoke EKG is sinus tachycardia at 107 bpm with no acute ST segment changes. [facility] History Medical History: Denies:: Cancer, Diabetes Mellitus Type 1, Diabetes Mellitus Type 2, MRSA *Have you ever received a pneumonia vaccine?: No *Have you received a flu vaccine this season?: Yes Other Surgeries: Yes: Tubal Ligation Amputation: No Fractures: No - *Social History Last grade of school completed: Advanced degree Smoking Status: Current every day smoker Tobacco Type: cigarettes # Packs/Day (cigarettes): 1 Alcohol Intake: never Alcohol Intake Frequency:: other *Occupational Status:: employed Housing: house Household Members: spouse *Travel in the last 8 weeks: None Family Hx:: Cancer, Heart Attack, Stroke Meds Home Medications Medication Instructions Recorded Confirmed Type Ferrous Sulfate [Ferrous Sulfate 325 mg PO DAILY 08/27/21 08/27/21 History 325mg Tab] Norethindrone Acetate 5 mg PO DIRECTED 08/27/21 08/27/21 History Allergies Allergy/AdvReac Type Severity Reaction Status Date / Time Penicillins [PENICILLINS] Allergy Mild Verified 08/27/21 03:00 Exam Vital signs and Labs for Last 24 Hours: Temp Pulse Resp BP Pulse Ox 98.3 F 76 16 106/81 L 99 08/27/21 08:45 08/27/21 08:45 08/27/21 08:45 08/27/21 08:45 08/27/21 08:45 Laboratory Results - last 24 hr 08/27/21 00:10: Urine Color Yellow, Urine Appearance Sl cloudy, Urine pH 6.0, Ur Specific [place] 1.020, Urine Protein Negative, Urine Glucose (UA) Negative, Urine Ketones Negative, Urine Blood 3+, Urine Nitrate Negative, Urine Bilirubin Negative, Urine Urobilinogen 0.2, Ur Leukocyte Esterase 1+ A, Urine RBC 10-20, Urine WBC 10-20, Ur Squamous Epith Cells 20-50, Urine Bacteria 1+ 08/27/21 00:20: WBC 16.1 H D, RBC 2.19 L, Hgb 7.0 L, Hct 22.4 L, MCV 102.5 H, MCH 31.8 H, MCHC 31.0 L, RDW 13.5, Plt Count 594 H D, MPV 9.0, Neut % (Auto) 74.4, Lymph % (Auto) 18.9, [place] % (Auto) 4.4, Eos % (Auto) 1.7, Baso % (Auto) 0.6, Neut # (Auto) 12.0 H, Lymph # (Auto) 3.1, [place] # (Auto) 0.7, Eos # (Auto) 0.3, Baso # (Auto) 0.1, Total Counted 100, Neutrophils % (Manual) 88 H, Lymphocytes % (Manual) 10, Monocytes % (Manual) 2, Platelet Estimate Normal, RBC Morphology Not Reportable, Hypochromasia 1+, Anisocytosis 1+, ESR 111 H 08/27/21 00:20: Sodium 137, Potassium 3.7, Chloride 107, Carbon Dioxide 23, Anion Gap 10.7, BUN 7, Creatinine 0.80, Estimated Creat Clear 137, Estimated GFR 78, Est GFR ( Amer) 94, Glucose 113 H, Calcium 8.6, Total Bilirubin < 0.1 L, AST 32, ALT 26, Alkaline Phosphatase 68, Troponin I < 0.01, C-Reactive Protein 0.7, Total Protein 6.2 L, Albumin 3.6, Globulin 2.6, Albumin/Globulin Ratio 1.4, Procalcitonin 0.032 08/27/21 00:20: SARS-CoV-2 (PCR) Not detected, Influenza A Untype (PCR) Not detected, Influenza Type B (PCR) Not detected 08/27/21 00:20: NT-Pro-B Natriuret Pep 190 H 08/27/21 00:20: Blood Type Confirm A Positive 08/27/21
--- NOTE | 2021-08-27 10:07 | HMH.ACPN2 ---
Internal Medicine - PN: Subj *Date: 08/27/21 *Time: 10:07 Interval history: This 45-year-old white female has had vaginal bleeding since June. She has been seen by Dr. Santana. She is on norethindrone and iron. She has continued to bleed. She presented in the emergency room because she was having shortness of breath and chest discomfort. Her hemoglobin was found to be 6.2 this morning. She is receiving transfusion. Clinically she is fine right now. She is not short of breath not having chest pain. She has been seen by cardiology and that evaluation has been reassuring. Her bleeding has slowed since the transfusion was started at 4:30 this morning. She has not been seen yet this morning by Dr. Santana, MULE SPINNER. Reviewing her transvaginal ultrasound the endometrium is at 2 cm. She needs to have a D&C to solve this problem. Exam Vital signs and Labs for Last 24 Hours: Temp Pulse Resp BP Pulse Ox 98.4 F 78 16 119/78 100 08/27/21 09:35 08/27/21 09:35 08/27/21 09:35 08/27/21 09:35 08/27/21 09:35 Laboratory Results - last 24 hr 08/27/21 00:10: Urine Color Yellow, Urine Appearance Sl cloudy, Urine pH 6.0, Ur Specific [place] 1.020, Urine Protein Negative, Urine Glucose (UA) Negative, Urine Ketones Negative, Urine Blood 3+, Urine Nitrate Negative, Urine Bilirubin Negative, Urine Urobilinogen 0.2, Ur Leukocyte Esterase 1+ A, Urine RBC 10-20, Urine WBC 10-20, Ur Squamous Epith Cells 20-50, Urine Bacteria 1+ 08/27/21 00:20: WBC 16.1 H D, RBC 2.19 L, Hgb 7.0 L, Hct 22.4 L, MCV 102.5 H, MCH 31.8 H, MCHC 31.0 L, RDW 13.5, Plt Count 594 H D, MPV 9.0, Neut % (Auto) 74.4, Lymph % (Auto) 18.9, [place] % (Auto) 4.4, Eos % (Auto) 1.7, Baso % (Auto) 0.6, Neut # (Auto) 12.0 H, Lymph # (Auto) 3.1, [place] # (Auto) 0.7, Eos # (Auto) 0.3, Baso # (Auto) 0.1, Total Counted 100, Neutrophils % (Manual) 88 H, Lymphocytes % (Manual) 10, Monocytes % (Manual) 2, Platelet Estimate Normal, RBC Morphology Not Reportable, Hypochromasia 1+, Anisocytosis 1+, ESR 111 H 08/27/21 00:20: Sodium 137, Potassium 3.7, Chloride 107, Carbon Dioxide 23, Anion Gap 10.7, BUN 7, Creatinine 0.80, Estimated Creat Clear 137, Estimated GFR 78, Est GFR ( Amer) 94, Glucose 113 H, Calcium 8.6, Total Bilirubin < 0.1 L, AST 32, ALT 26, Alkaline Phosphatase 68, Troponin I < 0.01, C-Reactive Protein 0.7, Total Protein 6.2 L, Albumin 3.6, Globulin 2.6, Albumin/Globulin Ratio 1.4, Procalcitonin 0.032 08/27/21 00:20: SARS-CoV-2 (PCR) Not detected, Influenza A Untype (PCR) Not detected, Influenza Type B (PCR) Not detected 08/27/21 00:20: NT-Pro-B Natriuret Pep 190 H 08/27/21 00:20: Blood Type Confirm A Positive 08/27/21 02:47: Troponin I < 0.01 08/27/21 02:47: Blood Type A Positive, Antibody Screen Negative, Crossmatch (AHG) See Detail 08/27/21 05:47: Troponin I < 0.01 08/27/21 05:47: WBC 11.4 H D, RBC 1.96 L*, Hgb 6.2 L*, Hct 20.9 L*, MCV 106.7 H, MCH 31.6 H, MCHC 29.6 L, RDW 13.7, Plt Count 452 H, MPV 8.9, Neut % (Auto) 70.6, Lymph % (Auto) 22.6, [place] % (Auto) 4.3, Eos % (Auto) 1.8, Baso % (Auto) 0.8, Neut # (Auto) 8.0 H, Lymph # (Auto) 2.6, [place] # (Auto) 0.5, Eos # (Auto) 0.2, Baso # (Auto) 0.1 08/27/21 05:47: Sodium 136, Potassium 3.6, Chloride 113 H, Carbon Dioxide 20 L, Anion Gap 6.6, BUN 5 L D, Creatinine 0.60 D, Estimated Creat Clear 187, Estimated GFR 108, Est GFR ( Amer) 131 D, Glucose 94, Calcium 7.8 L, Triglycerides 195 H, Cholesterol 172, LDL Cholesterol Direct 122.06, VLDL Cholesterol 39, HDL Cholesterol 24 L, Cholesterol/HDL Ratio 7.2 H I & O for Last 24 hours: Intake & Output 08/24/21 08/25/21 08/26/21 08/27/21 11:59 11:59 11:59 11:59 Intake Total 0 / 0 Balance 0 / 0 Weight 220 lb 9.6 oz - Constitutional no acute distress - *Routine HEENT Exam Head: Present: normocephalic Eye: Present: EOMI, PERRL ENT: Present: mucous membranes moist - *Routine Neck Exam Present: supple. Absent: lymphadenopathy - *Routine Respiratory Exam Present: CTA bi
--- NOTE | 2021-08-27 10:58 | HMH.HP ---
*Admission Date: 08/27/21 *Chief complaint: vaginal bleeding, chest pain *History of present illness: This 45-year-old white female has had vaginal bleeding since June. She has been seen by Dr. Santana. She is on norethindrone and iron. She has continued to bleed. She presented in the emergency room because she was having shortness of breath and chest discomfort. Her hemoglobin was found to be 6.2 this morning. She is receiving transfusion. Clinically she is fine right now. She is not short of breath not having chest pain. She has been seen by cardiology and that evaluation has been reassuring. Her bleeding has slowed since the transfusion was started at 4:30 this morning. She has not been seen yet this morning by Dr. Santana, ORTHOTIC AIDE. Reviewing her transvaginal ultrasound the endometrium is at 2 cm. She needs to have a D&C to solve this problem. (above as per Dr. Simons) [facility] History I have reviewed the patient's past medical history: Yes Medical History: Reports:: Hyperlipidemia Denies:: Cancer, Diabetes Mellitus Type 1, Diabetes Mellitus Type 2, Gastroesophageal Reflux Disease(GERD), Hypertension, MRSA *Have you ever received a pneumonia vaccine?: No *Have you received a flu vaccine this season?: Yes Other Surgeries: Yes: Tubal Ligation Amputation: No Fractures: No - *Social History Last grade of school completed: Advanced degree Smoking Status: Current every day smoker Tobacco Type: cigarettes # Packs/Day (cigarettes): 1 Alcohol Intake: never Alcohol Intake Frequency:: other *Occupational Status:: employed Housing: house Household Members: spouse *Travel in the last 8 weeks: None Family Hx:: Cancer, Heart Attack, Stroke Review of Systems - Constitutional Reports malaise, Reports weakness, Denies chills, Denies fever(s) - Eyes Denies blurry vision, Denies double vision - ENT Denies nasal congestion, Denies sore throat - *Cardiovascular Reports chest pain, Reports shortness of breath - *Respiratory Reports shortness of breath, Denies cough - *Gastrointestinal Denies abdominal pain, Denies loose stools, Denies nausea, Denies vomiting - *Genitourinary Denies difficulty urinating, Denies painful urination - *Musculoskeletal Denies joint pain - *Neurologic Reports headache(s), Reports dizziness, Reports weakness, Denies seizure-like activity Meds Home Medications Medication Instructions Recorded Confirmed Type Ferrous Sulfate [Ferrous Sulfate 325 mg PO DAILY 08/27/21 08/27/21 History 325mg Tab] Norethindrone Acetate 5 mg PO DIRECTED 08/27/21 08/27/21 History Allergies Allergy/AdvReac Type Severity Reaction Status Date / Time Penicillins [PENICILLINS] Allergy Mild Verified 08/27/21 03:00 Exam Vital signs and Labs for Last 24 Hours: Temp Pulse Resp BP Pulse Ox 98.0 F 76 18 120/79 100 08/27/21 10:50 08/27/21 10:50 08/27/21 10:50 08/27/21 10:50 08/27/21 10:50 Laboratory Results - last 24 hr 08/27/21 00:10: Urine Color Yellow, Urine Appearance Sl cloudy, Urine pH 6.0, Ur Specific [place] 1.020, Urine Protein Negative, Urine Glucose (UA) Negative, Urine Ketones Negative, Urine Blood 3+, Urine Nitrate Negative, Urine Bilirubin Negative, Urine Urobilinogen 0.2, Ur Leukocyte Esterase 1+ A, Urine RBC 10-20, Urine WBC 10-20, Ur Squamous Epith Cells 20-50, Urine Bacteria 1+ 08/27/21 00:20: WBC 16.1 H D, RBC 2.19 L, Hgb 7.0 L, Hct 22.4 L, MCV 102.5 H, MCH 31.8 H, MCHC 31.0 L, RDW 13.5, Plt Count 594 H D, MPV 9.0, Neut % (Auto) 74.4, Lymph % (Auto) 18.9, [place] % (Auto) 4.4, Eos % (Auto) 1.7, Baso % (Auto) 0.6, Neut # (Auto) 12.0 H, Lymph # (Auto) 3.1, [place] # (Auto) 0.7, Eos # (Auto) 0.3, Baso # (Auto) 0.1, Total Counted 100, Neutrophils % (Manual) 88 H, Lymphocytes % (Manual) 10, Monocytes % (Manual) 2, Platelet Estimate Normal, RBC Morphology Not Reportable, Hypochromasia 1+, Anisocytosis 1+, ESR 111 H 08/27/21 00:20: Sodium 137, Potassium 3.7, Chloride 107, Carbon Dioxide 23,
[2021-08-27 12:08] LABS: Hematocrit 27.5 % (37.0-47.0)
--- NOTE | 2021-08-27 12:13 | HMH.GYNCON ---
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 Schmidt is a 45 year old female, P2012, who presented to the ED with complaint of chest tightness and shortness of breath. She was seen in the office 08/24/21 with complaint of heavy vaginal bleeding every day since early June. She admits it was varying between light and heavy. However, the past 6 days bleeding has been very heavy with passage of clots. She admits prior to June periods were fairly regular. She has history of tubal ligation. Hgb on 08/24 was 7.8, TSH was within normal limits. She was started on Aygestin protocol. It can take 2-4 days for Aygestin to stop the bleeding. Attempted to order IV Injectafer and it was denied. Then attempted to order IV Venofer and again insurance denied it. She was started on oral ferrous sulfate. Pelvic ultrasound was ordered. Pelvic ultrasound 08/26 demonstrated uterus measuring 8.7 x 4.7 x 4.3 cm. The endometrium measures up to 2 cm. No uterine mass is identified. Hgb on admission, , was 6.2. She admits this morning her bleeding is light. She is s/p 2 units PRBCs. CC: Jocy Simons MD Review of Systems - Review of Systems Review of systems:: pertinent systems reviewed and negative unless documented below - Constitutional Reports fatigue, Reports weakness - *Cardiovascular Reports chest pain, Reports shortness of breath, Reports other (chest tightness on admission) Comments: Chest tightness on admission - *Respiratory Reports shortness of breath - *Genitourinary Reports abnormal vaginal bleeding, Reports heavy periods - *Neurologic Reports headache(s), Reports dizziness, Reports weakness, Denies seizure-like activity [facility] History I have reviewed the patient's past medical history: Yes Medical History: Reports:: Hyperlipidemia Denies:: Cancer, Diabetes Mellitus Type 1, Diabetes Mellitus Type 2, Gastroesophageal Reflux Disease(GERD), Hypertension, MRSA *Have you ever received a pneumonia vaccine?: No *Have you received a flu vaccine this season?: Yes Other Surgeries: Yes: Tubal Ligation Amputation: No Fractures: No - *Social History Last grade of school completed: Advanced degree Smoking Status: Current every day smoker Tobacco Type: cigarettes # Packs/Day (cigarettes): 1 Alcohol Intake: never Alcohol Intake Frequency:: other *Occupational Status:: employed Housing: house Household Members: spouse *Travel in the last 8 weeks: None Family Hx:: Cancer, Heart Attack, Stroke 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: Abnormal Uterine Bleeding, Tubal Ligation : 3 Para: 2 A: 1 LMP comments: current Meds Home Medications Medication Instructions Recorded Confirmed Type Ferrous Sulfate [Ferrous Sulfate 325 mg PO DAILY 08/27/21 08/27/21 History 325mg Tab] Hydrocod/Acet 5/325 mg [[place] 1 tab PO Q8HP PRN #6 tab 08/27/21 Rx 5/325mg tablet] Ibuprofen [Ibuprofen 800mg 800 mg PO Q8HP PRN #20 tab 08/27/21 Rx Tablet] Norethindrone Acetate 5 mg PO DIRECTED 08/27/21 08/27/21 History Allergies Allergy/AdvReac Type Severity Reaction Status Date / Time Penicillins [PENICILLINS] Allergy Mild Verified 08/27/21 03:00 [employer] PATTERN ASSEMBLER - Exam Vital signs: Temp Pulse Resp BP Pulse Ox 98.0 F 76 18 120/79 100 08/27/21 10:50 08/27/21 10:50 08/27/21 10:50 08/27/21 10:50 08/27/21 10:50 - Constitutional no acute distress - Routine Respiratory Exam Present: CTA bilaterally. Absent: respiratory distress - Routine Cardiovascular Exam Present: RRR - Routine Abdominal Exam Present: soft. Absent: normoactive bowel sounds, tenderness, distended - Routine Rectal Exam Patient defer
[2021-08-27 12:55] LABS: Hemoglobin 8.7 g/dL (12.2-16.2)
--- NOTE | 2021-08-27 13:32 | PC.NURSE ---
Rounded on pt, cleaned and straightened room. Pt npo at thist time, no needs voiced.
--- NOTE | 2021-08-27 14:49 | HMH.OPNOTE ---
Date of procedure: 08/27/21 Pre-op Diagnosis:: 1. Menorrhagia 2. Abnormal uterine bleeding 3. Acute blood loss anemia Post-op Diagnosis:: 1. Menorrhagia 2. Abnormal uterine bleeding 3. Acute blood loss anemia Procedure performed:: Hysteroscopy, Dilation and curettage, Endometrial ablation Surgeon:: Adri May DO [employer] DRIVER:: Other Anesthesia: GETA Estimated blood loss (mL): 5 Clinical Note:: Ms. Schmidt is a 45 year old female, P2012, who presented to the ED with complaint of chest tightness and shortness of breath. She was seen in the office 08/24/21 with complaint of heavy vaginal bleeding every day since early June. She admits it was varying between light and heavy. However, the past 6 days bleeding has been very heavy with passage of clots. She admits prior to June periods were fairly regular. She has history of tubal ligation. Hgb on 08/24 was 7.8, TSH was within normal limits. She was started on Aygestin protocol. It can take 2-4 days for Aygestin to stop the bleeding. Attempted to order IV Injectafer and it was denied. Then attempted to order IV Venofer and again insurance denied it. She was started on oral ferrous sulfate. Pelvic ultrasound was ordered. Pelvic ultrasound 08/26 demonstrated uterus measuring 8.7 x 4.7 x 4.3 cm. The endometrium measures up to 2 cm. No uterine mass is identified. Hgb on admission, , was 6.2. She admits this morning her bleeding is light. She is s/p 2 units PRBCs. Operative findings:: On bimanual exam, uterus was midposition and of normal, size and shape. No adnexal masses palpated. On hysteroscopic exam, bilateral tubal ostia easily visualized. Grossly normal appearing endometrial tissue. No masses or polyps. Operative note:: Risks, benefits and alternatives were discussed with the patient. Risks include but are not limited to bleeding, infection, uterine perforation and VTE. Patient voiced understanding and agreed to proceed. She was wheeled back to the operating room and placed under general anesthesia without difficulty. She was placed in dorsal lithotomy position and prepped and draped in the normal sterile fashion. Straight catheter was used to drain the bladder. A bimanual exam was performed. A weighted Auvard was placed in the vaginal vault. Single tooth tenaculu was placed on anterior lip of the cervix. Uterus sounded to 9. Sequential Ivan dilators were used to dilate the cervical os. Hysteroscope was tested inserted through the cervix without difficulty. Endometrial cavity was evaluated. See findings above. Pictures were taken. Hysteroscope was removed. Medium size sharp curette was inserted through the cervix into the uterine cavity. Endometrial curettings will be sent to pathology for review. Novasure sure sound was used to obtain uterine length. Uterus measured 5.5 cm in length and 4.6 cm in cavity width. Novasure deviced was inserted and ablation was performed per protocol at a power of 139 w for 87 seconds. Novasure device was removed. Hysteroscope was reinserted and cavity revealed adequate burn and no uterine perforation. Hysteroscope was removed. Instruments were removed from the vagina. Tenaculum site was noted to be hemostatic. Patient was awaken from anesthesia without difficulty. She was transported to recovery room in stable condition. Patient will be discharged home when awake and ambulating. She was given postop instructions as well as instructions to follow-up in the office in 2 weeks at which time pathology will be reviewed. Condition: stable Disposition: floor Complications:: None
--- NOTE | 2021-08-27 15:23 | PC.NURSE ---
1523-detailed report called to IleanaRN
--- NOTE | 2021-08-27 15:25 | SUR.PHASEI ---
1525-pt transported to 2nd floor room 213 via hospital bed and left in care of NEO Tejeda with bed locked in lowest position, vss, pt stable
--- NOTE | 2021-08-27 23:53 | HMH.DCSUM ---
General - General Admission date:: 08/27/21 Discharge date: 08/27/21 HPI HPI: This 45-year-old white female has had vaginal bleeding since June. She has been seen by Dr. Santana. She is on norethindrone and iron. She has continued to bleed. She presented in the emergency room because she was having shortness of breath and chest discomfort. Her hemoglobin was found to be 6.2 this morning. She is receiving transfusion. Clinically she is fine right now. She is not short of breath not having chest pain. She has been seen by cardiology and that evaluation has been reassuring. Her bleeding has slowed since the transfusion was started at 4:30 this morning. She has not been seen yet this morning by Dr. Santana, REJOGGER. Reviewing her transvaginal ultrasound the endometrium is at 2 cm. She needs to have a D&C to solve this problem. (above as per Dr. Simons) Hospital Course Hospital Course: The patient was transfused with improvement in her H&H to 8.7 and 27.5. She was started back on her norethindrone. Cardiology was consulted and felt her chest pain was a result of her marked anemia. Her troponins were normal and her EKG showed no ST segment changes. Her preliminary echo showed a preserved EF. She was seen in consultation by SENIOR REGULATORY AFFAIRS SPECIALIST who took her to the OR and performed a hysteroscopy, D&C, and endometrial ablation. The patient was stable to be discharged home and was given postop instructions by Dr. Santana. She will follow-up with Dr. Santana in 2 weeks. Objective Vital signs: Temp Pulse Resp BP Pulse Ox 97.9 F 74 14 139/66 100 08/27/21 16:15 08/27/21 17:45 08/27/21 17:45 08/27/21 17:45 08/27/21 17:45 Narrative: - Constitutional no acute distress - *Routine HEENT Exam Head: Present: normocephalic Eye: Present: EOMI, PERRL ENT: Present: mucous membranes moist - *Routine Neck Exam Present: supple. Absent: lymphadenopathy - *Routine Respiratory Exam Present: CTA bilaterally - *Routine Cardiovascular Exam Present: RRR - *Routine Abdominal Exam Present: soft, normoactive bowel sounds. Absent: tenderness - *Routine Rectal Exam Rectal:: deferred - *Routine Genitalia Exam Genitalia:: deferred - *Routine Extremities Exam Absent: cyanosis, clubbing, edema - *Routine Skin Exam Present: pallor, warm. Absent: rash - *Routine Neurological Exam Present: alert, oriented X3 Results Labs on day of discharge: Labs from last 24 hours 08/27/21 08/27/21 08/27/21 12:00 05:47 05:47 WBC 11.4 H D RBC 1.96 L* Hgb 8.7 L D 6.2 L* Hct 27.5 L 20.9 L* MCV 106.7 H MCH 31.6 H MCHC 29.6 L RDW 13.7 Plt Count 452 H MPV 8.9 Neut % (Auto) 70.6 Lymph % (Auto) 22.6 [place] % (Auto) 4.3 Eos % (Auto) 1.8 Baso % (Auto) 0.8 Neut # (Auto) 8.0 H Lymph # (Auto) 2.6 [place] # (Auto) 0.5 Eos # (Auto) 0.2 Baso # (Auto) 0.1 Total Counted Neutrophils % (Manual) Lymphocytes % (Manual) Monocytes % (Manual) Platelet Estimate RBC Morphology Hypochromasia Anisocytosis ESR Sodium 136 Potassium 3.6 Chloride 113 H Carbon Dioxide 20 L Anion Gap 6.6 BUN 5 L D Creatinine 0.60 D Estimated Creat Clear 187 Estimated GFR 108 Est GFR ( Amer) 131 D Glucose 94 Calcium 7.8 L Total Bilirubin AST ALT Alkaline Phosphatase Troponin I C-Reactive Protein NT-Pro-B Natriuret Pep Total Protein Albumin Globulin Albumin/Globulin Ratio Triglycerides 195 H Cholesterol 172 LDL Cholesterol Direct 122.06 VLDL Cholesterol 39 HDL Cholesterol 24 L Cholesterol/HDL Ratio 7.2 H Procalcitonin Urine Color Urine Appearance Urine pH Ur Specific [place] Urine Protein Urine Glucose (UA) Urine Ketones Urine Blood Urine Nitrate Urine Bilirubin Urine Urobilinogen Ur Leukocyte Esterase Urine RBC Urine
--- NOTE | 2021-08-28 13:52 | CARE MANAGER ---
Contacted patient related to discharge from hospital. She states she is doing very well. She has her medication and is aware of her MD appointment. She denies any questions or concerns. NEO Love
== END 2021-08-27 18:15 | disposition home or self-care (01) ==
LOC: ER 00:13 → 2ND 02:39
PROVIDERS: Obstetrics & Gynecology; Admitting Provider Family Medicine; Emergency Provider Emergency Medicine; PCP Family Medicine; Visit Provider Family Medicine
PROC: (CPT 58120; principal; 2021-08-27 13:00)
DX: N93.9 Abnormal uterine and vaginal bleeding, unspecified; N85.00 Endometrial hyperplasia, unspecified; Z82.49 Family history of ischemic heart disease and other diseases of the circulatory system; E78.5 Hyperlipidemia, unspecified; F17.210 Nicotine dependence, cigarettes, uncomplicated; Z79.899 Other long term (current) drug therapy; Z88.0 Allergy status to penicillin; R07.2 Precordial pain; D64.9 Anemia, unspecified
CPT/HCPCS: 58353; 58558; 36415; 71046; 80048; 80053; 80061; 81001; 83880; 84145; 84484; 85007; 85014; 85018; 85025; 85651; 86140; 86850; 87086; 87088; 87186; 93005; 93306; 99285; C9803; G0378; J2405; P9016; U0003; U0005

== ENCOUNTER 2023-04-04 14:16 | Emergency (ER) | payer OTHER, SELFPAY ==
[2023-04-04 14:30] VITALS: BP 131/75; PULSE 79; RESP 18; TEMP 36.7; O2SAT 98; BMI 35.9
--- NOTE | 2023-04-04 14:52 | ED_ITS ---
Discharge Plan Disposition Patient Disposition: Home, Self-Care Condition: Good Prescriptions Prescriptions: New azithromycin [Zithromax] 250 mg tablet 250 mg PO UD DOSE PK Qty: 6 0RF Rx Instructions: Take two (2) tablets today, then one (1) tablet days #2 thru #5 benzonatate [benzonatate] 100 mg capsule 100 mg PO TIDP PRN (Reason: Cough) Qty: 30 0RF methylprednisolone 4 mg Tablets,Dose Pack 4 mg PO DIRECTED 6 Days Qty: 21 0RF Rx Instructions: Take 1 pack as directed for 6 days guaifenesin [Mucinex] 600 mg tablet extended release 12hr 600 - 1,200 mg PO BIDP PRN (Reason: Congestion) Qty: 30 0RF No Action norethindrone acetate 5 MG tablet 5 mg PO DIRECTED ferrous sulfate 325 MG tablet 325 mg PO DAILY ibuprofen 800 MG tablet 800 mg PO Q8HP PRN (Reason: Moderate Pain) Qty: 20 0RF hydrocodone-acetaminophen 1 TAB tablet 1 tab PO Q8HP PRN (Reason: Moderate To Severe Pain) Qty: 6 0RF Referrals Follow up/Referrals: Provider,Referral, MD [Primary Care Provider] - See instructions Activity Restrictions/Add. Instructions Additional Instructions/Restrictions: Drink plenty of fluids. Take tylenol or ibuprofen for pain or fever. Take the medications as directed. Follow up with your regular doctor. GO TO THE ER FOR ANY WORSENING SYMPTOMS Don't start the oral steroids until tomorrow since you had the steroid shot here today. Clinical Impressions Clinical Impression: Sinusitis Instructions Patient Instructions: Sinusitis, DI for Sinusitis, Dexamethasone Injection Discharge ED Provider: Tacos Higgins [facility] [place] General Stated complaint: runny nose, stomach pain, congestion Mode of Arrival: Ambulatory Source of Information: Patient Limitations: No Limitations Time Seen by Provider: 04/04/23 14:52 Description of Symptoms (Recalled from Triage Doc. by RN): PATIENT C/O RUNNY NOSE, CONGESTION, SORE THROAT, COUGH, AND SINUS PRESSURE X 2 DAYS HEENT Symptoms (Recalled from RN notes): Yes Resp Symptoms (Recalled from RN notes): Yes Skin Symptoms (Recalled from RN notes): No MS Symptoms (Recalled from RN notes): No Functional Status (Recalled from RN notes): WNL History of Present Illness Provider Complaint: She states that for the past 5 days she has had worsening sinus congestion, sinus pressure, puffiness below her eyes, scratchy throat and malaise. Related Data Home Medications Medication Instructions Recorded Confirmed ferrous sulfate 325 mg (65 mg 325 mg PO DAILY Supplement 08/27/21 08/27/21 iron) tablet norethindrone acetate 5 mg tablet 5 mg PO DIRECTED hormone 08/27/21 08/27/21 replacement Previous Rx's Medication Instructions Recorded hydrocodone 5 mg-acetaminophen 325 1 tab PO Q8HP PRN Moderate To 08/27/21 mg tablet Severe Pain #6 tabs ibuprofen 800 mg tablet 800 mg PO Q8HP PRN Moderate Pain 08/27/21 #20 tabs azithromycin 250 mg tablet 250 mg PO UD DOSE PK #6 tabs 04/04/23 (Zithromax) benzonatate 100 mg capsule 100 mg PO TIDP PRN Cough #30 caps 04/04/23 guaifenesin 600 mg tablet, 600 - 1,200 mg PO BIDP PRN 04/04/23 extended release 12 hr (Mucinex) Congestion #30 tabs methylprednisolone 4 mg tablets in 4 mg PO DIRECTED 6 days #21 tabs 04/04/23 a dose pack Allergies Allergy/AdvReac Type Severity Reaction Status Date / Time Penicillins [PENICILLINS] Allergy Mild Verified 08/27/21 03:00 Worker's Comp Is this a Worker's Comp case?: No [facility] Disclaimer: The information contained in this section may have been updated after the patient was seen, as this information can be updated by other users. 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) ROS Obtained: Yes All systems reviewed & no additional complaints except as documented Constitutional Constitutional: Reports poor appetite Eyes Eyes: Reports system reviewed and no additional complaints, except as documented ENT Ears, Nose, Mouth, and Throat: Reports as per HPI Cardiovascular Cardiovascular: Reports system reviewed and no additional complaints, except as documented and Denies chest pain Respiratory Respiratory: Denies shortness of breath, Denies chest congestion, Reports cough, Denies stridor and Denies wheezing Gastrointestinal Gastrointestingal: Reports system reviewed and no additional complaints, except as documented; Denies abdominal pain, diarrhea or vomiting Musculoskeletal Musculoskeletal: Reports system reviewed and no additional complaints, except as documented and Denies arthralgias Integumentary/Breasts Skin/Breast: Reports system reviewed and no additional complaints, except as documented and Denies rash Neurologic Neurologic: Denies paresthesias Allergic/Immunologic Allergic/Immunologic: Denies wheezing Physical Exam General General appearance: alert and in no apparent distress Eye Eye exam: Present normal appearance, PERRL and EOMI ENT ENT exam: Present mucous membranes moist and normal external ear exam Expanded ENT Exam External ear exam: Present normal external inspection TM/Canal exam: Bilateral TM: erythema and bulging Nose exam: Absent sinus tenderness Nasal speculum exam: Bilateral: normal Mouth exam: Present normal external inspection; Absent drooling Teeth exam: Present normal inspection Throat exam: Present tonsillar erythema and tonsillomegaly Neck Neck exam: Present normal inspection, full ROM and trachea midline; Absent tenderness, lymphadenopathy or thyromegaly Chest Chest inspection: Present normal inspection and symmetric chest wall rise; Absent tenderness or rash Respiratory Respiratory exam: Present normal lung sounds bilaterally; Absent respiratory distress, wheezes, stridor or accessory muscle use Cardiovascular Cardiovascular exam: Present regular rate, normal rhythm and normal heart sounds Abdominal Exam Abdominal exam: Present soft; Absent distention, tenderness, guarding, rebound or rigidity Extremities Exam Extremities exam: Present normal inspection, full ROM and normal capillary refill; Absent tenderness or calf tenderness Back Exam Back exam: Present normal inspection and full ROM; Absent tenderness Neurological Exam Neurological exam: Present alert and oriented X3 Psychiatric Psychiatric exam: Present normal affect and normal mood Skin Skin exam: Present warm, dry, intact and normal color Lymphatic Lymphatic Findings: no adenopathy Medical Decision Making Medical Records Medical records reviewed: No I reviewed the patient's medical records. Nathanael Inquiry Pt receiving controlled substance: No Vital Signs: 04/04/23 14:30 Temperature 98.0 F Temperature Source Oral Pulse Rate [Left Brachial] 79 Respiratory Rate 18 Blood Pressure [Left Arm] 131/75 Blood Pressure Mean [Left Arm] 93 Blood Pressure Source [Left Arm] Automatic Cuff Blood Pressure Position [Left Arm] Sitting 02 Sat by Pulse Oximetry 98 Oxygen Delivery Method Room Air
[2023-04-04] MEDS: DEXAMETHASONE 4MG/ML 1ML VIAL 8 MG IM (14:56)
[2023-04-04 15:18] VITALS: BP 131/75; PULSE 79; RESP 18; TEMP 36.7; O2SAT 98
== END 2023-04-04 15:20 | disposition home or self-care (01) ==
PROVIDERS: Emergency Provider Nurse Practitioner Family
DX: J01.90 Acute sinusitis, unspecified (principal); R05.9 Cough, unspecified; R07.0 Pain in throat; R09.81 Nasal congestion; F17.210 Nicotine dependence, cigarettes, uncomplicated
CPT/HCPCS: 96372; 99212; 99214; G0463

== ENCOUNTER 2023-09-19 14:28 | Outpatient (CLI) | payer OTHER, SELFPAY ==
--- NOTE | 2023-09-19 14:32 | XR_ITS ---
FINAL REPORT TECHNIQUE: 2 views CLINICAL HISTORY: neck and back pain COMPARISON: None FINDINGS: There is no fracture present. There is a mild left curvature of the thoracic spine. Mild degenerative change is noted with multilevel small osteophytes. IMPRESSION: No acute process. Mild degenerative change of the thoracic spine. Reviewed, Interpreted and Dictated by Ryne Atkinson III, MD Transcribed by Hazel [place]ves Authenticated and [facility]
--- NOTE | 2023-09-19 14:32 | XR_ITS ---
FINAL REPORT TECHNIQUE: 3 views CLINICAL HISTORY: neck pain COMPARISON: None FINDINGS: There is no fracture present. There is no malalignment. There is mild degenerative change with osteophytes. IMPRESSION: No acute process. Mild degenerative change. Reviewed, Interpreted and Dictated by Ryne Atkinson III, MD Transcribed by Hazel Groves Authenticated and [facility]
[2023-09-19 16:59] LABS: Microscopic, Urine URINE MICROSCOPIC (MICROSCOPIC)
[2023-09-19 17:30] LABS: Basophils # 0.1 K/mm3 (0-0.2); Basophils % 0.5 % (0.1-2.0); Eosinophils # 0.3 K/mm3 (0.0-0.4); Eosinophils % 2.7 % (0.1-12.0); Hematocrit 48.5 % (37.0-47.0); Hemoglobin 15.8 g/dL (12.2-16.2); Lymphocytes % 18.4 % (10-50); Mean Corpuscular HGB Conc 32.5 g/dL (31.8-35.4); Mean Corpuscular Hemoglobin 33.1 pg (27.0-31.2); Mean Corpuscular Volume 101.6 fl (81-99); Mean Platelet Volume 9.3 fl (7.4-10.4); Monocytes # 0.5 K/mm3 (0.1-1.0); Monocytes % 4.6 % (1.7-9.3); Neutrophils % 73.8 % (37.0-80.0); Platelet Count 310 K/mm3 (142-424); Red Blood Count 4.78 M/mm3 (4.20-5.40); Red Cell Distribution Width 12.8 % (11.5-17.5); White Blood Count 10.8 K/mm3 (4.8-10.8)
[2023-09-19 17:50] LABS: Alanine Aminotransferase 24 U/L (12-78); Albumin Level 3.8 g/dl (3.5-5.0); Albumin/Globulin Ratio 1.3 (1.1-1.8); Alkaline Phosphatase 84 U/L (38-126); Anion Gap 10.2 mEq/L (5-15); Aspartate Amino Transferase 25 U/L (14-36); Bilirubin,Total 0.5 mg/dl (0.2-1.3); Blood Urea Nitrogen 12 mg/dl (7-17); Carbon Dioxide 24 mmol/L (22.0-30.0); Chloride 105 mmol/L (98-107); Chol/HDL Ratio 6.7 (1-3.5); Cholesterol 255 mg/dl (140-200); Estimated Glomerular Filt Rate 132 ml/min (>60); GFR (African American) 160 ML/MIN (>60); Globulin 2.9 g/dL (1.3-3.2); Glucose 128 mg/dl (74-100); HDL Cholesterol 38 mg/dl (40-60); Potassium 4.2 mmoL/L (3.5-5.1); Sodium 135 mmol/L (136-145); Total Protein,Serum 6.7 g/dl (6.3-8.2); Triglycerides 287 mg/dl (30-150); VLDL Cholesterol 57 mg/dL (0-40)
[2023-09-19 17:52] LABS: Appearance,Urine CLEAR (Clear); Bilirubin,Urine Negative (Negative); Blood, Urine Negative (Negative); Color,Urine YELLOW (Yellow); Glucose,Urine (UA) Negative (Negative); Ketones,Urine Negative (Negative); Leukocyte Esterase,Urine Negative (Negative); Nitrate,Urine Negative (Negative); Protein,Urine Negative (Negative)
[2023-09-19 18:01] LABS: Direct LDL Cholesterol 148.26 mg/dL (100-129)
[2023-09-19 18:07] LABS: 25-OH Vitamin D, Total 19.6 ng/mL (30-100)
[2023-09-19 18:18] LABS: Bacteria,Urine 3+ /lpf; Trichomonas,Urine 1+ /lpf
[2023-09-19 18:22] LABS: Free T4 (Free Thyroxine) 0.79 ng/dl (0.78-2.19)
[2023-09-19 18:38] LABS: Vitamin B12 235 pg/mL (239-931)
[2023-09-19 20:00] LABS: Hemoglobin A1C 5.2 % (4.0-6.0)
[2023-09-19 21:05] LABS: Iron 158 ug/dL (37-170)
[2023-09-19 21:14] LABS: Total Iron Binding Capacity 350 ug/dL (265-497)
[2023-09-19 21:41] LABS: Ferritin 57.3 ng/ml (6.24-137)
[2023-09-19 21:46] LABS: Thyroid Stimulating Hormone 2.35 uIU/mL (0.465-4.68)
== END 2023-09-19 23:59 | disposition home or self-care (01) ==
LOC: LAB 14:29
PROVIDERS: PCP Nurse Practitioner Family; Visit Provider Nurse Practitioner Family
DX: M54.2 Cervicalgia (principal); M54.9 Dorsalgia, unspecified; R53.83 Other fatigue; D64.9 Anemia, unspecified; Z13.1 Encounter for screening for diabetes mellitus; E66.9 Obesity, unspecified; Z68.37 Body mass index [BMI] 37.0-37.9, adult; Z13.220 Encounter for screening for lipoid disorders
CPT/HCPCS: 72040; 72070; 80050; 80053; 80061; 81001; 82306; 82607; 82728; 83036; 83540; 83550; 84439; 84443; 85025; 87086

== ENCOUNTER 2023-09-28 15:36 | Outpatient (CLI) | payer OTHER, SELFPAY ==
--- NOTE | 2023-09-28 15:37 | MM_ITS ---
PROCEDURE INFORMATION: Exam: MG Bilateral Screening 3D Mammography Exam date and time: 09/28/2023 3:22 PM Age: 47 years old Clinical indication: Screening exam. TECHNIQUE: Imaging protocol: Bilateral Screening tomosynthesis and 2D mammography including computer-aided detection (CAD) when performed. COMPARISON: No relevant prior studies available. FINDINGS: MAMMOGRAPHY: Breast composition: The breasts are heterogeneously dense, which may obscure small masses. Mass: No suspicious masses. Architectural distortion: None. Calcifications: No suspicious calcifications. Asymmetric density: None. Skin thickening: None. Axillary adenopathy: None. IMPRESSION: No mammographic evidence of malignancy. Annual screening is recommended unless otherwise clinically indicated. ASSESSMENT: BI-RADS Category 1: Negative
== END 2023-09-28 23:59 | disposition home or self-care (01) ==
LOC: RAD 15:37
PROVIDERS: PCP Nurse Practitioner Family; Visit Provider Nurse Practitioner Family
DX: Z12.31 Encounter for screening mammogram for malignant neoplasm of breast (principal)
CPT/HCPCS: 77063; 77067

== ENCOUNTER 2024-02-12 13:44 | Emergency (ER) | payer SELFPAY ==
[2024-02-12 15:30] VITALS: BP 139/82; PULSE 87; RESP 18; TEMP 37; O2SAT 98; BMI 35.2
--- NOTE | 2024-02-12 15:35 | EXP.UTC ---
Discharge Plan Disposition Patient Disposition: Home, Self-Care Condition: Good Prescriptions Prescriptions: New azithromycin [Zithromax] 250 mg tablet 250 mg PO UD DOSE PK Qty: 6 0RF Rx Instructions: Take two (2) tablets today, then one (1) tablet days #2 thru #5 benzonatate 100 mg capsule 100 mg PO TIDP PRN (Reason: Cough) Qty: 30 0RF methylprednisolone 4 mg Tablets,Dose Pack 4 mg PO DIRECTED 6 Days Qty: 21 0RF Rx Instructions: Take 1 pack as directed for 6 days Referrals Follow up/Referrals: Jigna Bond APRN [Primary Care Provider] - See instructions Activity Restrictions/Add. Instructions Additional Instructions/Restrictions: Drink plenty of fluids. Take tylenol or ibuprofen for pain or fever. Take the medications as directed. Follow up with your regular doctor. GO TO THE ER FOR ANY WORSENING SYMPTOMS Don't start the oral steroids (medrol dose pack) until tomorrow since you had the shot here Clinical Impressions Clinical Impression: Otitis media, Sinusitis Instructions Patient Instructions: Sinusitis, DI for Sinusitis, Dexamethasone Injection Print Language Print Language: Occitan Discharge ED Provider: Tacos Higgins [facility] [place] [facility] [place] General Stated complaint: congestion cough sneezing campos Mode of Arrival: Ambulatory Source of Information: Patient Time Seen by Provider: 02/12/24 15:23 Description of Symptoms (Recalled from Triage Doc. by RN): CONGESTION, RUNNY NOSE, COUGH, CAMPOS, FEVER HEENT Symptoms (Recalled from RN notes): Yes Resp Symptoms (Recalled from RN notes): Yes Skin Symptoms (Recalled from RN notes): No MS Symptoms (Recalled from RN notes): No Functional Status (Recalled from RN notes): WNL Related Data Previous Rx's ?Medication ?Instructions ?Recorded azithromycin 250 mg tablet 250 mg PO UD DOSE PK #6 tabs 02/12/24 (Zithromax) benzonatate 100 mg capsule 100 mg PO TIDP PRN Cough #30 caps 02/12/24 methylprednisolone 4 mg tablets in 4 mg PO DIRECTED 6 days #21 tabs 02/12/24 a dose pack Allergies Allergy/AdvReac Type Severity Reaction Status Date / Time Penicillins (PENICILLINS) Allergy Mild Verified 10/03/23 13:05 Worker's Comp Is this a Worker's Comp case?: No [facility] Disclaimer: The information contained in this section may have been updated after the patient was seen, as this information can be updated by other users. 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 (Works in a [employer]) Have you lived/traveled outside [place] in past 30 days?: No Contact w/someone who lives/traveled outside [place] past 30 days?: No Exposure to someone with infectious disease in past 14 days?: No Do you have a fever (greater than 100.4 F or 38 C)?: No Have you tested positive for COVID-19: No Exposed to someone with COVID-19 in past 14 days?: No Do you have a sore throat?: No Do you have a cough?: Yes Do you have any weakness?: No Do you have any diarrhea?: No Are you experiencing any unusual bleeding?: No Do you have any muscle aches/pain?: No Do you have any abdominal pain?: No Are you experiencing loss of taste or smell?: No ROS Obtained: Yes All systems reviewed & no additional complaints except as documented Constitutional Constitutional: Denies chills, Reports fever(s) and Reports poor appetite Eyes Eyes: Denies eye discharge ENT Ears, Nose, Mouth, and Throat: Denies ear discharge, Reports otalgia, Denies hearing loss, Denies sinus pain and Reports sore throat Cardiovascular Cardiovascular: Denies chest pain and Denies dyspnea Respiratory Respiratory: Denies chest congestion, Reports cough and Denies dyspnea Gastrointestinal Gastrointestingal: Denies abdominal pain, diarrhea, nausea or vomiting Musculoskeletal Musculoskeletal: Denies arthralgias Integumentary/Breasts Skin/Breast: Denies rash Physical Exam General General appearance: alert and in no apparent distress Head Head exam: atraumatic, normocephalic and normal inspection Eye Eye exam: Present normal appearance; Absent PERRL or EOMI ENT ENT exam: Present mucous membranes moist and normal external ear exam Expanded ENT Exam TM/Canal exam: Bilateral TM: erythema, bulging and effusion Nose exam: Absent sinus tenderness Nasal speculum exam: Bilateral: normal Mouth exam: Present normal external inspection and other; Absent drooling Teeth exam: Present normal inspection Throat exam: Present tonsillar erythema and tonsillomegaly Neck Neck exam: Present normal inspection, full ROM and trachea midline; Absent tenderness, meningismus or lymphadenopathy Chest Chest inspection: Present normal inspection and symmetric chest wall rise; Absent tenderness Respiratory Respiratory exam: Present normal lung sounds bilaterally; Absent respiratory distress, wheezes or stridor Cardiovascular Cardiovascular exam: Present regular rate, normal rhythm and normal heart sounds; Absent tachycardia or irregular rhythm Abdominal Exam Abdominal exam: Present soft and normal bowel sounds; Absent distention, tenderness, guarding, rebound or rigidity Extremities Exam Extremities exam: Present normal inspection and normal capillary refill; Absent tenderness, joint swelling or calf tenderness Back Exam Back exam: Present normal inspection and full ROM; Absent tenderness, CVA tenderness (R) or CVA tenderness (L) Neurological Exam Neurological exam: Present alert, oriented X3, CN II-XII intact, normal gait and reflexes normal; Absent motor sensory deficit Psychiatric Psychiatric exam: Present normal affect and normal mood Skin Skin exam: Present warm, dry, intact and normal color Lymphatic Lymphatic Findings: no adenopathy Medical Decision Making Medical Records Medical records reviewed: No I reviewed the patient's medical records. Screening: Per USPSTF and CDC recommendations, given the prevalence of disease in our region, it is our hospital?s policy to screen for HIV and viral Hepatitis for all patients aged 18 and over and those with ongoing risk factors. Nathanael Inquiry Pt receiving controlled substance: No Vital Signs: 02/12/24 15:30 Temperature 98.6 F Temperature Source Oral Pulse Rate [Right Brachial] 87 Respiratory Rate 18 Blood Pressure [Left Arm] 139/82 Blood Pressure Mean [Left Arm] 101 02 Sat by Pulse Oximetry 98 Lab Data Lab results reviewed: Yes I reviewed the patient's lab results.
[2024-02-12] MEDS: DEXAMETHASONE 4MG/ML 1ML VIAL 8 MG IM (16:12)
[2024-02-12 16:25] VITALS: BP 139/82; PULSE 87; RESP 18; TEMP 37
== END 2024-02-12 16:26 | disposition home or self-care (01) ==
PROVIDERS: Emergency Provider Nurse Practitioner Family; PCP Nurse Practitioner Family
DX: J32.9 Chronic sinusitis, unspecified (principal); H66.90 Otitis media, unspecified, unspecified ear; R50.9 Fever, unspecified; R51.9 Headache, unspecified; R05.9 Cough, unspecified; R09.81 Nasal congestion; R06.7 Sneezing; R63.8 Other symptoms and signs concerning food and fluid intake
CPT/HCPCS: 96372; 99212; G0381; J1100

== ENCOUNTER 2024-10-04 15:45 | Outpatient (CLI) | payer OTHER, SELFPAY ==
--- NOTE | 2024-10-04 15:30 | MM_ITS ---
PROCEDURE INFORMATION: Exam: MG Bilateral Screening 3D Mammography Exam date and time: 10/04/2024 3:47 PM Age: 48 years old Clinical indication: Screening examination. TECHNIQUE: Imaging protocol: Bilateral Screening tomosynthesis and 2D mammography including computer-aided detection (CAD) when performed. COMPARISON: MG MM DIG SCREENING MAMM BI W/CAD 09/28/2023 3:22 PM FINDINGS: MAMMOGRAPHY: Breast composition: There are scattered areas of fibroglandular density. Mass: None. Architectural distortion: None. Calcifications: No suspicious calcifications. Asymmetric density: None. Skin thickening: None. Axillary adenopathy: None. IMPRESSION: No mammographic evidence of malignancy. Annual screening is recommended unless otherwise clinically indicated. ASSESSMENT: BI-RADS Category 1: Negative.
== END 2024-10-04 23:59 | disposition home or self-care (01) ==
LOC: RAD 15:46
PROVIDERS: PCP Nurse Practitioner Family; Visit Provider Nurse Practitioner Family
DX: Z12.31 Encounter for screening mammogram for malignant neoplasm of breast (principal)
CPT/HCPCS: 77063; 77067